=== PATIENT | male | born 1965 ===

== ENCOUNTER 2017-05-21 11:36 | Emergency (ER) | payer BC ==
[2017-05-21 11:44] VITALS: O2SAT 100
[2017-05-21 12:22] VITALS: RESP 18
[2017-05-21] MEDS ORDERED: Lidocaine 4% (Laryng-O-Jet) Kit MM STA (12:34)
[2017-05-21] MEDS ORDERED: Phenylephrine 0.5% Nasal Spray (15 ml) NAS STA (12:34)
[2017-05-21] MEDS ORDERED: Phenylephrine 1% Nasal Spray (15 ml) ONE (12:42)
[2017-05-21] MEDS ORDERED: Lidocaine 4% (Laryng-O-Jet) Kit MM ONE (12:42)
--- NOTE | 2017-05-21 13:15 | C.PDOC ---
History Of Present Illness 52 year old male with Hx of HTN presents to the ED c/o of an intermittent nosebleed for the past 4 days. Patient denies currently taking any blood thinners, also denies trauma, injury, fall, dizziness, headache, CP, SOB, weakness, numbness. Time Seen by Provider: 05/21/17 12:14 Chief Complaint (Nursing): ENT Problem History Per: Patient History/Exam Limitations: None Onset/Duration Of Symptoms: Days Current Symptoms Are (Timing): Still Present Symptoms Have Been: Continuous Severity: Mild Anticoagulant/Antiplatlet Use?: No Recent Aspirin Use: No Past Medical History Reviewed: Historical Data, Nursing Documentation, Vital Signs Vital Signs: Last Vital Signs Temp 97.9 F 05/21/17 11:41 Pulse 105 H 05/21/17 12:02 Resp 18 05/21/17 12:02 BP 142/86 05/21/17 12:02 Pulse Ox 100 05/21/17 13:15 - Medical History PMH: HTN Surgical History: No Surg Hx Family History: States: Unknown Family Hx - Social History Hx Alcohol Use: No Hx Substance Use: No - Immunization History Hx Tetanus Toxoid Vaccination: No Hx Influenza Vaccination: No Hx Pneumococcal Vaccination: No Review Of Systems Constitutional: Negative for: Fever, Chills ENT: Positive for: Other (Nosebleed) Cardiovascular: Negative for: Chest Pain, Palpitations Respiratory: Negative for: Shortness of Breath Gastrointestinal: Negative for: Nausea, Vomiting Skin: Negative for: Rash Neurological: Negative for: Weakness, Numbness, Headache Physical Exam - Physical Exam Appears: Non-toxic, No Acute Distress Skin: Normal Color, Warm, Dry Head: Atraumatic, Normacephalic Eye(s): bilateral: Normal Inspection Nose: Epistaxis (left anterior naris) Throat: Normal, No Erythema, No Exudate Neck: Normal ROM, Supple Chest: Symmetrical Cardiovascular: Rhythm Regular, No Murmur Respiratory: Normal Breath Sounds, No Rales, No Rhonchi, No Wheezing Gastrointestinal/Abdominal: Soft, No Tenderness, No Distention, No Guarding, No Rebound Back: No CVA Tenderness Extremity: Normal ROM, No Deformity, No Swelling Neurological/Psych: Oriented x3, Normal Speech, Normal Cognition Gait: Steady ED Course And Treatment O2 Sat by Pulse Oximetry: 100 (On RA) Pulse Ox Interpretation: Normal Disposition - Disposition Forms: [employer] (Spanish)
--- NOTE | 2017-05-21 13:17 | C.PDOC ---
History Of Present Illness 52 year old male with Hx of HTN presents to the ED c/o of an intermittent nosebleed for the past 4 days. Patient denies currently taking any blood thinners, also denies trauma, injury, fall, dizziness, headache, CP, SOB, weakness, numbness. Time Seen by Provider: 05/21/17 12:14 Chief Complaint (Nursing): ENT Problem History Per: Patient History/Exam Limitations: no limitations Onset/Duration Of Symptoms: Days Current Symptoms Are (Timing): Still Present Location Of Bleeding: Left Nare Symptoms Have Been: Continuous Severity: None Associated Symptoms: denies: Syncope, Lightheadedness, Bleeding From Gums, Nasal Drainage Anticoagulant/Antiplatlet Use?: No Recent Aspirin Use: No Recent travel outside of the [place]: No Additional History Per: Patient Past Medical History Reviewed: Historical Data, Nursing Documentation, Vital Signs Vital Signs: Last Vital Signs Temp 97 F L 05/21/17 13:34 Pulse 87 05/21/17 13:34 Resp 18 05/21/17 13:34 BP 129/87 05/21/17 13:34 Pulse Ox 100 05/21/17 13:34 - Medical History PMH: HTN Surgical History: No Surg Hx Family History: States: Unknown Family Hx - Social History Hx Alcohol Use: No Hx Substance Use: No - Immunization History Hx Tetanus Toxoid Vaccination: No Hx Influenza Vaccination: No Hx Pneumococcal Vaccination: No Review Of Systems Constitutional: Negative for: Fever, Chills ENT: Positive for: Other (Nosebleed) Cardiovascular: Negative for: Chest Pain, Palpitations Respiratory: Negative for: Shortness of Breath Gastrointestinal: Negative for: Nausea, Vomiting Skin: Negative for: Rash Neurological: Negative for: Weakness, Numbness, Headache Physical Exam - Physical Exam Appears: Non-toxic, No Acute Distress Skin: Normal Color, Warm, Dry Head: Atraumatic, Normacephalic Eye(s): bilateral: Normal Inspection Nose: Epistaxis (left anterior nare) Oral Mucosa: Moist Throat: Normal, No Erythema, No Exudate Neck: Normal ROM, Supple Chest: Symmetrical Cardiovascular: Rhythm Regular, No Murmur Respiratory: Normal Breath Sounds, No Rales, No Rhonchi, No Wheezing Gastrointestinal/Abdominal: Soft, No Tenderness, No Guarding, No Rebound Extremity: Normal ROM, No Calf Tenderness, No Deformity, No Swelling Neurological/Psych: Oriented x3, Normal Speech, Normal Cognition Gait: Steady ED Course And Treatment O2 Sat by Pulse Oximetry: 100 (On RA) Pulse Ox Interpretation: Normal Medical Decision Making Medical Decision Making: Procedure : * Used 0.5 % Neosynephrine 3 ml SEE * Applied 4% lidocaine * 4.5 cm nasal rocket used Patient tolerated the procedure well. Pt was diagnosed with epistaxis, advised to removed the nasal packing in 2-3 days. Follow up with PMD for further evaluation. Disposition Counseled Patient/Family Regarding: Diagnosis, Need For Followup - Disposition Referrals: Karl Templeton MD [Staff Provider] - Disposition: HOME/ ROUTINE Disposition Time: 13:16 Condition: IMPROVED Additional Instructions: follow up for nasal packing removal in 2-3 days call to make an appointment return to ER if symptoms worsens motrin or advil for pain Instructions: Nosebleed (ED) Forms: [employer] (Sri [place]ankan), [employer] (Greenlandic) Print Language: TUVALU[place] - Clinical Impression Clinical Impression: Bleeding nose - Scribe Statement The provider has reviewed the documentation as recorded by the Scribe Morteza Chavez All medical record entries made by the Scribe were at my direction and personally dictated by me. I have reviewed the chart and agree that the record accurately reflects my personal performance of the history, physical exam, medical decision making, and the department course for this patient. I have also personally directed, reviewed, and agree with the discharge instructions and disposition.
[2017-05-21 13:35] VITALS: BP 129/87; PULSE 87; TEMP 97
== END 2017-05-21 13:35 | disposition home or self-care (01) ==
LOC: C.ER 11:36
DX: R04.0 Epistaxis (principal)